=== PATIENT | male | born 1965 | race Caucasian/White ===

== ENCOUNTER 2018-10-23 17:34 | Emergency (ER) | payer BC ==
[2018-10-23 17:43] VITALS: RESP 18
[2018-10-23] MEDS ORDERED: SODIUM CHLORIDE 0.9% 500 ML 500 ML IV STA (18:07)
--- NOTE | 2018-10-23 18:13 | ED ---
General Adult HPI - General Chief complaint: Urogenital Stated complaint: Kidney stone Time Seen by Provider: 10/23/18 17:59 Source: patient, RN notes reviewed, old records reviewed Mode of arrival: ambulatory Limitations: no limitations - History of Present Illness Initial comments: 52-year-old male patient with past medical history of recurrent renal calculi, status post left nephrectomy approximately 6 weeks ago due to "infection and zero function" presents to ED with approximately 3 days of fever and general malaise. Pt states that yesterday he felt as if he passed a kidney stone. Patient reports that yesterday he had approximately 3 episodes of emesis. Patient reports that the fever has responded well to Tylenol. Patient reports that he has taken Tylenol today. Patient denies any other symptoms. Patient denies dysuria, abdominal pain, cough, congestion, night sweats, rash, chest pain, shortness of breath. Systemic: Pt denies fatigue, myalgia, rash. Pt denies weakness, night sweats, weight loss. Neuro: Pt denies headache, visual disturbances, syncope or pre-syncope. HEENT: Pt denies ocular discharge or irritation, otalgia, rhinorrhea, pharyngitis or notable lymphadenopathy. Cardiopulmonary: Pt denies chest pain, SOB, heart palpitations, dyspnea on exertion. Abdominal/GI: Pt denies abdominal pain, n/v/d. : Pt denies dysuria, burning w/ urination, frequency/urgency. Denies new onset urinary or bowel incontinence. MSK: Pt denies myalgia, loss of strength or function in extremities. Neuro: Pt denies new onset weakness, paresthesias. - Related Data Home Medications Medication Instructions Recorded Confirmed Sodium Bicarbonate Tab 650 mg PO BID 10/23/18 10/23/18 Allergies Allergy/AdvReac Type Severity Reaction Status Date / Time No Known Allergies Allergy Verified 10/23/18 19:59 Review of Systems ROS Statement: Those systems with pertinent positive or pertinent negative responses have been documented in the HPI. ROS Other: All systems not noted in ROS Statement are negative. Past Medical History Past Medical History: Renal Disease History of Any Multi-Drug Resistant Organisms: None Reported Past Surgical History: Cholecystectomy Additional Past Surgical History / Comment(s): nephrectomy, 5 renal surgeries Past Psychological History: No Psychological Hx Reported Smoking Status: Current every day smoker Past Alcohol Use History: None Reported Past Drug Use History: Marijuana General Exam - General Exam Comments Initial Comments: Constitutional: NAD, AOX3, Pt has pleasant affect. HEENT: NC/AT, trachea midline, neck supple, no lymphadenopathy. Posterior pharynx non erythematous, without exudates. External ears appear normal, without discharge. Mucous membranes moist. Eyes PERRLA, EOM intact. There is no scleral icterus. No pallor noted. Cardiopulmonary: RRR, no murmurs, rubs or gallops, no JVD noted. Lungs CTAB in anterior and posterior arreola. No peripheral edema. Abdominal exam: Abdomen soft and non-distended. Abdomen non-tender to palpation in all 4 quadrants. Bowel sounds active in LLQ. No hepatosplenomegaly. No ecchymosis. Surgery sites healed, non-erythematous, no discharge. Neuro: CN II-XII grossly intact. No nuchal rigidity. MSK: No posterior calf tenderness bilaterally, homans sign negative bilaterally. Posterior tibialis and radial pulse +2 bilaterally. Sensation intact in upper and lower extremities. Full active ROM in upper and lower extremities, 5/5 stregnth. Limitations: no limitations Course Vital Signs 10/23/18 17:39 Temperature 98 F Pulse Rate 84 Respiratory 18 Rate Blood Pressure 118/85 O2 Sat by Pulse 100 Oximetry Medical Decision Making - Medical Decision Making 52-year-old male patient with past medical history of recurrent renal calculi, status post left nephrectomy approximately 6 weeks ago due to "infection and zero function" presents to ED with approximately 3 days of fever and general malaise. Pt states that yesterday he felt as if he passed a kidney stone. Patient reports that yesterday he had approximately 3 episodes of emesis. Patient reports that the fever has responded well to Tylenol. Patient reports that he has taken Tylenol today. Patient denies any other symptoms. Patient vital signs stable, afebrile. Physical exam did not display acute pathology. Laboratory investigations revealed unimpressive CBC, CMP revealed creatinine of 4.99patient states that this is his baseline. Lactic acid within normal limits. Creatinine kinase low. UA revealed greater than 182 white blood cells , 12 red blood cells. Large leukocyte esterase. +2 protein. Patient administered 1 g of Rocephin in ED. Chest x-ray did not display acute process, KUB displayed clips from left nephrectomy, possible right renal calculi, nonacute abdomen. CT abdomen and pelvis displayed right renal cortical thinning , multiple right renal cortical cyst with nonobstructing numerous calculi, normal appendix, left nephrectomy noted. Patient transferred to [facility] where his surgeon is located. Patient was strongly advised to travel via EMS, however refused and will transfer via private vehicle. Case discussed with Dr. Genao. - Lab Data Result diagrams: 10/23/18 18:35 10/23/18 18:35 Lab Results 10/23/18 10/23/18 10/23/18 Range/Units 18:35 18:35 18:35 WBC 6.8 (3.8-10.6) k/uL RBC 4.77 (4.30-5.90) m/uL Hgb 13.3 (13.0-17.5) gm/dL Hct 43.6 (39.0-53.0) % MCV 91.4 (80.0-100.0) fL MCH 27.9 (25.0-35.0) pg MCHC 30.6 L (31.0-37.0) g/dL RDW 15.6 H (11.5-15.5) % Plt Count 161 (150-450) k/uL Neutrophils % 71 % Lymphocytes % 14 % Monocytes % 11 % Eosinophils % 0 % Basophils % 1 % Neutrophils # 4.8 (1.3-7.7) k/uL Lymphocytes # 1.0 (1.0-4.8) k/uL Monocytes # 0.7 (0-1.0) k/uL Eosinophils # 0.0 (0-0.7) k/uL Basophils # 0.0 (0-0.2) k/uL Hypochromasia Slight Sodium 137 (137-145) mmol/L Potassium 5.1 (3.5-5.1) mmol/L Chloride 108 H (98-107) mmol/L Carbon Dioxide 18 L (22-30) mmol/L Anion Gap 11 mmol/L BUN 39 H (9-20) mg/dL Creatinine 4.99 H (0.66-1.25) mg/dL Est GFR (CKD-EPI)AfAm 14 (>60 ml/min/1.73 sqM) Est GFR (CKD-EPI)NonAf 12 (>60 ml/min/1.73 sqM) Glucose 100 H (74-99) mg/dL Plasma Lactic Acid Rob (0.7-2.0) mmol/L Calcium 8.7 (8.4-10.2) mg/dL Total Bilirubin 0.6 (0.2-1.3) mg/dL AST 15 L (17-59) U/L ALT 33 (21-72) U/L Alkaline Phosphatase 119 (38-126) U/L Creatine Kinase (55-170) U/L Total Protein 6.6 (6.3-8.2) g/dL Albumin 3.6 (3.5-5.0) g/dL Urine Color Yellow Urine Appearance Cloudy (Clear) Urine pH 5.5 (5.0-8.0) Ur Specific Brothers 1.014 (1.001-1.035) Urine Protein 2+ H (Negative) Urine Glucose (UA) Negative (Negative) Urine Ketones Negative (Negative) Urine Blood Moderate H (Negative) Urine Nitrite Positive (Negative) Urine Bilirubin Negative (Negative) Urine Urobilinogen <2.0 (<2.0) mg/dL Ur Leukocyte Esterase Large H (Negative) Urine RBC 12 H (0-5) /hpf Urine WBC >182 H (0-5) /hpf Urine WBC Clumps Few H (None) /hpf Ur Squamous Epith Cells <1 (0-4) /hpf Urine Bacteria Many H (None) /hpf Urine Mucus Rare H (None) /hpf Influenza Type A RNA (Not Detectd) Influenza Type B (PCR) (Not Detectd) 10/23/18 10/23/18 10/23/18 Range/Units 18:35 18:35 20:36 WBC (3.8-10.6) k/uL RBC (4.30-5.90) m/uL Hgb (13.0-17.5) gm/dL Hct (39.0-53.0) % MCV (80.0-100.0) fL MCH (25.0-35.0) pg MCHC (31.0-37.0) g/dL RDW (11.5-15.5) % Plt Count (150-450) k/uL Neutrophils % % Lymphocytes % % Monocytes % % Eosinophils % % Basophils % % Neutrophils # (1.3-7.7) k/uL Lymphocytes # (1.0-4.8) k/uL Monocytes # (0-1.0) k/uL Eosinophils # (0-0.7) k/uL Basophils # (0-0.2) k/uL Hypochromasia Sodium (137-145) mmol/L Potassium (3.5-5.1) mmol/L Chloride (98-107) mmol/L Carbon Dioxide (22-30) mmol/L Anion Gap mmol/L BUN (9-20) mg/dL Creatinine (0.66-1.25) mg/dL Est GFR (CKD-EPI)AfAm (>60 ml/min/1.73 sqM) Est GFR (CKD-EPI)NonAf (>60 ml/min/1.73 sqM) Glucose (74-99) mg/dL Plasma Lactic Acid Rob 1.1 (0.7-2.0) mmol/L Calcium (8.4-10.2) mg/dL Total Bilirubin (0.2-1.3) mg/dL AST (17-59) U/L ALT (21-72) U/L Alkaline Phosphatase (38-126) U/L Creatine Kinase 30 L (55-170) U/L Total Protein (6.3-8.2) g/dL Albumin (3.5-5.0) g/dL Urine Color Urine Appearance (Clear) Urine pH (5.0-8.0) Ur Specific Brothers (1.001-1.035) Urine Protein (Negative) Urine Glucose (UA) (Negative) Urine Ketones (Negative) Urine Blood (Negative) Urine Nitrite (Negative) Urine Bilirubin (Negative) Urine Urobilinogen (<2.0) mg/dL Ur Leukocyte Esterase (Negative) Urine RBC (0-5) /hpf Urine WBC (0-5) /hpf Urine WBC Clumps (None) /hpf Ur Squamous Epith Cells (0-4) /hpf Urine Bacteria (None) /hpf Urine Mucus (None) /hpf Influenza Type A RNA Not Detected (Not Detectd) Influenza Type B (PCR) Not Detected (Not Detectd) Disposition Clinical Impression: Renal calculi, Urinary tract infection Disposition: OTHER INSTITUTION NOT DEFINED Condition: Serious Instructions (If sedation given, give patient instructions): Urinary Tract Infection in Men (ED) Additional Instructions: Please travel directly to . Is patient prescribed a controlled substance at d/c from ED?: No Referrals: None,Stated [Primary Care Provider] - 1-2 days - Out of Hospital Transfer - Req. Specs Out of Hospital Transfer - Requested Specifics: Other Emergency Center ([facility])
--- NOTE | 2018-10-23 18:56 | XR ---
EXAMINATION TYPE: XR chest 2V DATE OF EXAM: 10/23/2018 COMPARISON: NONE HISTORY: Fever TECHNIQUE: Frontal and lateral views of the chest are obtained. FINDINGS: Heart and mediastinum are normal. Lungs are clear. Diaphragm is normal. Bony thorax appear s intact. IMPRESSION: Normal chest
--- NOTE | 2018-10-23 18:58 | XR ---
Abdomen single view. History kidney stones. Comparison none. FINDINGS: There are clips in the epigastrium. There is no sign of intestinal obstruction or pneumoperitoneum. F ecal pattern is normal. There are some amorphous calcifications over the right upper quadrant that co uld be in the right kidney. There is no evidence of a mass. Lung bases are clear. IMPRESSION: Clips from left nephrectomy. Possible right renal calculi. Nonacute abdomen.
[2018-10-23 19:21] LABS: Albumin 3.6 g/dL (3.5-5.0); Basophils % (A) 1 %; Calcium 8.7 mg/dL (8.4-10.2); Eosinophils % (A) 0 %; HCT 43.6 % (39.0-53.0); HGB 13.3 gm/dL (13.0-17.5); Hypochromasia Slight; Lymphocytes % (A) 14 %; MCH 27.9 pg (25.0-35.0); MCHC 30.6 g/dL (31.0-37.0); MCV 91.4 fL (80.0-100.0); Monocytes # (A) 0.7 k/uL (0-1.0); Monocytes % (A) 11 %; Neutrophils # (A) 4.8 k/uL (1.3-7.7); Neutrophils % (A) 71 %; Platelet Count 161 k/uL (150-450); Potassium 5.1 mmol/L (3.5-5.1); RBC 4.77 m/uL (4.30-5.90); RDW 15.6 % (11.5-15.5); Total Bilirubin 0.6 mg/dL (0.2-1.3); Total Protein 6.6 g/dL (6.3-8.2); WBC 6.8 k/uL (3.8-10.6)
[2018-10-23 19:25] LABS: Appearance,Urine Cloudy (Clear); Bacteria,Urine Many /hpf; Bilirubin,Urine Negative (Negative); Blood,Urine Moderate (Negative); Color,Urine Yellow; Glucose,Urine (UA) Negative (Negative); Ketones,Urine Negative (Negative); Leukocyte Esterase,Urine Large (Negative); Mucus,Urine Rare /hpf; Nitrite,Urine Positive (Negative); PH, Urine 5.5 (5.0-8.0); Protein,Urine 2+ (Negative); RBC,Urine 12 /hpf (0-5); Specific Gravity,Urine 1.014 (1.001-1.035); Squamous Epithelial Cell,Urine <1 /hpf (0-4); Urobilinogen,Urine <2.0 mg/dL (<2.0)
--- NOTE | 2018-10-23 21:16 | CT ---
EXAMINATION TYPE: CT abdomen pelvis wo con DATE OF EXAM: 10/23/2018 COMPARISON: None HISTORY: Abdomen pain. Hx renal stones. LT nephrectomy [address] DLP: 530.8 mGycm Automated exposure control for dose reduction was used. TECHNIQUE: Helical acquisition of images was performed from the lung bases through the pelvis. FINDINGS: Lung bases are clear of consolidation. There is no pleural effusion. Heart size is normal. Liver shows no focal defect. Spleen appears normal. There is no pancreatic mass. There is some fat st randing at the nephrectomy site on the left side. The right kidney shows multiple cortical cysts and cortical thinning. Cysts measure up to 4 cm. Right ureters not dilated. There are surgical clips from left nephrectomy. There is no retroperitoneal adenopathy. There are a abdominal para-aortic lymph no dano that measure up to 1 cm. Appendix appears normal. The bladder distends smoothly. There is no free fluid in the pelvis. There is no inguinal hernia. There is no mesenteric edema. There is no evidence of a bowel obstruction. There is no sign of free a ir. There are multiple right renal calculi that measure up to 1 cm. There is no ascites. I see no bony destructive process. Lumbar spine is intact. IMPRESSION: Right renal cortical thinning. Multiple right renal cortical cysts with nonobstructing numerous calcu li. Normal appendix. Left nephrectomy noted. IMPRESSION:
[2018-10-23 23:39] VITALS: BP 128/88; PULSE 77; TEMP 98.1
== END 2018-10-23 23:38 | disposition other institution (70) ==
LOC: EC 17:34
DX: N20.0 Calculus of kidney (principal); N39.0 Urinary tract infection, site not specified; N28.1 Cyst of kidney, acquired; F17.200 Nicotine dependence, unspecified, uncomplicated; Z90.49 Acquired absence of other specified parts of digestive tract; Z90.5 Acquired absence of kidney; Z87.442 Personal history of urinary calculi; Z98.890 Other specified postprocedural states; Z79.899 Other long term (current) drug therapy
CPT/HCPCS: 36415; 80053; 82550; 83605; 85025; 81001; 87040; 87086; 87502; 71046; 74018; 74176; 99285; 96365; J0696